=== PATIENT | female | born 1965 | race Caucasian/White ===

== ENCOUNTER → 2016-11-13 | Outpatient (CLI) | payer BC ==
--- NOTE | 2016-11-13 10:27 | DIAGNOSTIC IMAGING REPORT ---
RIGHT FOOT MIN 3 VIEWS CLINICAL HISTORY: Right foot pain following crush injury. COMPARISON: None FINDINGS: There is a possible nondisplaced fracture within the base of the proximal phalanx of the right fourth toe. Tarsometatarsal joints appear intact. No additional fractures are present. Lateral view demonstrates soft tissue swelling overlying the dorsal aspect of the metatarsophalangeal joints. IMPRESSION: 1. Suspected acute nondisplaced fracture of the base of the proximal phalanx of the right fourth toe. Electronically signed by: Antony Nelson M.D. 11/13/2016 10:26 AM Dictated Date/Time: 11/13/2016 10:21 AM
== END | disposition home or self-care (01) ==
LOC: C.RDSM 09:00
PROVIDERS: ATTEND Family Medicine
DX: M79.671 Pain in right foot (principal)

== ENCOUNTER → 2016-11-29 | Outpatient (CLI) | payer BC ==
--- NOTE | 2016-11-29 15:06 | DIAGNOSTIC IMAGING REPORT ---
RIGHT FOURTH TOE 3 VIEWS CLINICAL HISTORY: Fourth toe fracture. FINDINGS: 3 views of the right fourth toe are correlated with radiograph of the right foot dated 11/13/2016. There is unchanged alignment of a healing fracture through the base of the fourth proximal phalanx with overlying soft tissue edema. There is intra-articular extension. No additional fracture is seen. IMPRESSION: Unchanged alignment of healing fracture through the base of the fourth proximal phalanx as compared to 11/13/2016. Electronically signed by: Sergey Berkowitz M.D. 11/29/2016 3:04 PM Dictated Date/Time: 11/29/2016 3:03 PM
== END | disposition home or self-care (01) ==
LOC: C.RDSM 08:00
PROVIDERS: ATTEND Family Medicine
DX: Z87.81 Personal history of (healed) traumatic fracture (principal)

== ENCOUNTER 2024-09-09 20:36 | Observation (INO) ==
[2024-09-09] MEDS: ONDANSETRON INJ 2 MG/ML 2 ML VIAL IV STA (22:07)
[2024-09-09] MEDS: MoRPHine SULFATE 4 MG/ML 1 ML CARP\\VIAL IV PRN (22:07)
[2024-09-09 22:11] LABS: Basophils # (auto) 0.08 K/uL (0.00-0.20); Basophils % (auto) 0.8 %; Eosinophils # (auto) 0.08 K/uL (0.00-0.50); Eosinophils % (auto) 0.8 %; Hematocrit (blood only) 44.4 % (37.0-47.0); Hemoglobin 14.1 g/dl (12.0-16.0); Immature Granulocytes # (auto) 0.04 K/uL (0.01-0.20); Immature Granulocytes % (auto) 0.4 %; Lymphocytes # (auto) 1.78 K/uL (1.20-3.40); Lymphocytes % (auto) 18.7 %; Mean Corpuscular Hemoglobin 26.9 pg (25.0-34.0); Mean Corpuscular Hgb Conc 31.8 g/dL (32.0-36.0); Mean Corpuscular Volume 84.6 fL (80.0-100.0); Mean Platelet Volume 10.7 fL (9.4-12.4); Monocytes % (auto) 7.3 %; Neutrophils # (auto) 6.86 K/uL (1.40-6.50); Platelet Count 311 K/uL (130-400); RDW Coefficient of Variation 17.3 % (11.5-14.5); RDW Standard Deviation 53.1 fL (36.4-46.3); Red Blood Count 5.25 M/uL (4.20-5.40); White Blood Count 9.54 K/ul (4.8-10.8)
--- NOTE | 2024-09-09 22:23 | History & Physical Report ---
Date of Service September 09, 2024 Assessment & Plan (1) Ankle fracture, right: Plan: Traumatic fracture right ankle seen on XR. Ortho consulted in the ED. Patient would prefer - [facility]. Placed referral for [facility]. Offered [facility] - patient declined. Pain control - morphine 2 mg, 4 mg IV Antiemetics on board - Zofran ortho consult - likely surgery tomorrow NPO @ midnight coags ordered for the AM (2) GERD (gastroesophageal reflux disease): Plan: Switch to IV protonix while inpatient. (3) Mood disorder: Plan: Continue paroxetine. Plan Code status: full DVT ppx: none for now, would defer to ortho team on post-op chemoppx FENGI: NPO @ midnight, mIVF @ 80 mL/hr while NPO Dispo: MedSurg History of Present Illness Chief Complaint: fall Primary Care Provider: VESNA Cruz 59 y/o here for evaluation after a fall. Patient slipped on the steps and fell. Having right ankle pain. No nausea or vomiting. No CP or SOB. No change in bowel or bladder habits. Otherwise feeling fine. Patient is from [place] and is uncomfortable undergoing surgery with a provider that she does not have recommendations for. Would like to go with Aaron Doty or Shana. No history of DOMINIK, asthma, or prior adverse reaction to anesthesia. Allergies Allergy/AdvReac Type Severity Reaction Status Date / Time No Known Allergies Allergy Unverified 09/09/24 21:53 Home Medications Medication Instructions Recorded Confirmed Type pantoprazole 40 mg tablet,delayed 40 mg PO DAILYBB 09/09/24 09/09/24 History release paroxetine HCl 20 mg tablet 20 mg PO DAILY 09/09/24 09/09/24 History Past Med/Surg History Problem List Fall (Acute) Mood disorder GERD (gastroesophageal reflux disease) Ankle fracture, right (Acute) Surgical History History of section Social History Smoking Status: Never smoker Second Hand Exposure: No; Do You Dip or Chew Tobacco: No; Tobacco Cessation Education Requested by Patient: No Hx Alcohol Use: No Hx Substance Use: No Preferred Language: Swiss Communication Ability: Effective Steel Burner Required: No Beliefs That Will Affect Care: None Current Living Situation: Spouse Other Information That Helps Us Care for You: No Feels Safe at Home: Yes Safety Concerns: Feels Safe At This Time Review of Systems 2 Review of Systems: See HPI Physical Exam 2 Physical Exam: Gen: well appearing patient in NAD HEENT: AT NC MMM Resp: CTAB no wheezing no increased work of breathing CV: RRR no m/r/g clinically well perfused Abd: +BS, soft, non-tender, non-distended MSK: significant swelling right ankle, warm and well perfused Skin: no rashes or bruising Neuro: alert and oriented Psych: appropriate mood and affect Results & Data Results & Data Vital Signs (Past 12 Hours) Vital Signs Temp Pulse Pulse Resp BP BP Pulse Ox 09/09/24 20:52 36.9 C 90 18 101/84 97 09/09/24 20:46 36.9 C 90 18 101/84 97 O2 Del Method 09/09/24 20:52 Room Air 09/09/24 20:46 Room Air Laboratory Results 09/09/24 21:55 09/09/24 21:55 Diagnostic Findings Ankle X-Ray 09/09/24 20:41 Exam(s): XR RIGHT ANKLE, 3+ views EXAM: XR Right Ankle Complete, 3 or More Views CLINICAL HISTORY: Reason for exam: fall. TECHNIQUE: Frontal, lateral and oblique views of the right ankle. COMPARISON: No relevant prior studies available. FINDINGS: Bones/joints: Trimalleolar fracture. Posterior and lateral subluxation of the talar dome with respect to the tibial plafond. Soft tissues: Extensive soft tissue edema and deformity at the ankle. IMPRESSION: 1. Trimalleolar fracture. 2. Posterior and lateral subluxation of the talar dome with respect to the tibial plafond. Electronically signed by: Garth Knight MD 09/10/24 00:16 AM Supervising Physician Co-Signing Physician Notes Patient seen and examined, chart reviewed, case discussed with Dr. Gomez and I agree with the assessment and plan as above. In brief, patient is a 59yo female presenting s/p fall resulting in right trimalleolar fracture. Patient presently resides in [facility]. She works for [employer] and was in town for a conference. She unfortunately slipped on some stairs and fell resulting in a right trimalleolar ankle fracture. No head trauma or LOC. No additional injuries sustained. Fracture was splinted in the ER. Pain presently well controlled On exam she is afebrile, mildly hypertensive otherwise stable VS Skin - intact, no rashes or lesions HEENT- MMM, Neck supple Heart - +S1/S2, regular, no m/r/g Lungs- CTA Abd - soft, NT/ND Ext - right ankle with splint in place. NV intact Labs and images reviewed Assessment/Plan 59yo female presenting after a fall resulting in right trimalleolar fracture. She has been placed in a splint in the ER. NV intact. Pain well controlled at present. -Admit to medical -Keep NPO for possible OR in AM -Appreciate Orthopedic Surgery assistance -Pain control with Morphine PRN -Zofran PRN nausea -Protonix 40mg IV daily - patient with h/o GERD -Continue Paroxetine 20mg po daily - patient with h/o mood disorder Patient with no active cardiac or pulmonary conditions. She has had wisdom teeth extraction and in the past with no adverse reactions. Per RCRI criteria she is Class I Risk for MACE (0 points) and may proceed to surgery with no additional testing. Remainder of plan as above Resident Activity Tracking Resident Involvement: Resident Care Provided Care Provided: Adult [facility]
[2024-09-09 22:24] LABS: Albumin Globulin Ratio 1.8 (0.9-2); Albumin Level 4.3 gm/dl (3.4-5.0); BUN Creatinine Ratio 19.4 (10-20); Bilirubin,Total 0.6 mg/dl (0.2-1.0); Creatinine Clr Calc Pharmacy 93.5 ml/min; Globulin 2.4 gm/dl (2.5-4.0); Total Protein 6.7 gm/dl (6.0-8.3)
--- NOTE | 2024-09-10 00:17 | Emergency Department Note ---
History of Present Illness General Chief complaint: Ankle Pain Stated complaint: Fall, R Ankle Pain Time Seen by Provider: 09/09/24 20:37 History of Present Illness Maximum Pain Intensity: 9 This is a 59-year-old female presenting to the emergency department via EMS for evaluation of right ankle injury. Patient is from [facility] and is in [place] for a conference. The patient was walking down stairs, slipped awkwardly down 2 steps, and injured herself. She did not strike her head or lose consciousness. She has not been able to ambulate on her ankle since the injury. Her discomfort is rated a 9/10. Home Medications Medication Instructions Recorded Confirmed Type pantoprazole 40 mg tablet,delayed 40 mg PO DAILYBB 09/09/24 09/09/24 History release paroxetine HCl 20 mg tablet 20 mg PO DAILY 09/09/24 09/09/24 History Allergies Allergy/AdvReac Type Severity Reaction Status Date / Time No Known Allergies Allergy Unverified 09/09/24 21:53 Past Med/Surg History Problem List (Updated 09/10/24 @ 00:17 by Jeffrey Cuadra PA-C) Fall (Acute) Mood disorder GERD (gastroesophageal reflux disease) Ankle fracture, right (Acute) Surgical History (Updated 09/10/24 @ 00:11 by Jeffrey Cuadra PA-C) History of section Social History Smoking Status: Never smoker Feels Safe at Home: Yes Review of Systems A total of 10 systems reviewed and were otherwise negative Physical Exam Vital Signs Vital Signs - 24 hr 09/09/24 20:46 09/09/24 20:52 09/09/24 22:30 Temperature 36.9 C 36.9 C Temperature Source Oral Oral Pulse Rate 90 Pulse Rate [Finger] 90 92 H Respiratory Rate 18 18 17 Respiratory Effort / Characteristics Non-Labored Spontaneous Non-Labored Spontaneous Non-Labored Spontaneous Respiratory Depth Normal Normal Normal Respiratory Pattern Regular Blood Pressure 101/84 Blood Pressure [Left Arm] 101/84 144/89 H Blood Pressure Mean 89 Blood Pressure Mean [Left Arm] 89 107 Blood Pressure Position Sitting Blood Pressure Position [Left Arm] Sitting Pulse Oximetry 97 97 95 Oxygen Delivery Method Room Air Room Air Room Air Sepsis Recent Fever Within 48 Hours No Sepsis New/Unexplained Change in Mental Status No Sepsis Action Taken by Nursing No Action Required VITALS: Vitals are noted on the nurse's note and reviewed by myself. Vital signs stable. GENERAL: Well-developed, well-nourished, white female, who is mildly uncomfortable appearing but overall pleasant. HEAD: Normocephalic atraumatic. HEART: Regular rate and rhythm without murmurs gallops or rubs. LUNGS: Clear to auscultation bilaterally without wheezes, rales or rhonchi. No retractions or accessory muscle use. MUSCULOSKELETAL: Notable ecchymosis diffusely around the right ankle. There does appear to be deformity. Neurovascular status is intact throughout the right lower extremity including foot. No tenderness to the foot itself or the knee. No blood identified. NEURO: Patient was alert and oriented to person place and time. CN II through XII grossly intact. Course Administered Medications Morphine Sulfate (Morphine Sulfate 4 Mg/Ml 1 Ml Carp\Vial) 4 mg IV Q30M PRN PRN Reason: Pain Stop: 09/23/24 21:57 Last Admin: 09/09/24 22:07 Dose: 4 mg Documented By: BAO Discontinued Medications Ondansetron HCl (Ondansetron Inj 2 Mg/Ml 2 Ml Vial) 4 mg IV NOW STA Stop: 09/09/24 21:59 Last Admin: 09/09/24 22:07 Dose: 4 mg Documented By: BAO Medical Decision Making Differential Diagnosis Differential diagnosis includes, but is not limited to: Sprain, strain, fracture, dislocation, subluxation, contusion, and others Laboratory Data 09/09/24 21:55 09/09/24 21:55 Lab Results 09/09/24 Range/Units 21:55 WBC 9.54 (4.8-10.8) K/ul RBC 5.25 (4.20-5.40) M/uL Hgb 14.1 (12.0-16.0) g/dl Hct 44.4 (37.0-47.0) % MCV 84.6 (80.0-100.0) fL MCH 26.9 (25.0-34.0) pg MCHC 31.8 L (32.0-36.0) g/dL RDW Std Deviation 53.1 H (36.4-46.3) fL RDW Coeff of Geetha 17.3 H (11.5-14.5) % Plt Count 311 (130-400) K/uL MPV 10.7 (9.4-12.4) fL Immature Gran % (Auto) 0.4 % Neut % (Auto) 72.0 % Lymph % (Auto) 18.7 % Finney % (Auto) 7.3 % Eos % (Auto) 0.8 % Baso % (Auto) 0.8 % Neut # (Auto) 6.86 H (1.40-6.50) K/uL Lymph # (Auto) 1.78 (1.20-3.40) K/uL Finney # (Auto) 0.70 H (0.11-0.59) K/uL Eos # (Auto) 0.08 (0.00-0.50) K/uL Baso # (Auto) 0.08 (0.00-0.20) K/uL Immature Gran # (Auto) 0.04 (0.01-0.20) K/uL Sodium 138 (136-145) mmol/L Potassium 4.0 (3.5-5.1) mmol/L Chloride 103 (98-107) mmol/L Carbon Dioxide 29 (21-32) mmol/L Anion Gap 6 (3-11) BUN 14 (6-23) mg/dl Creatinine 0.72 (0.6-1.2) mg/dl Est Cr Clr Drug Dosing 93.5 ml/min eGFR 96.26 BUN/Creatinine Ratio 19.4 (10-20) Glucose 104 H (70-99(Fasting)) mg/dl Calcium 10.0 (8.6-10.3) mg/dl Total Bilirubin 0.6 (0.2-1.0) mg/dl AST 22 (13-39) U/L ALT 25 (7-52) U/L Alkaline Phosphatase 99 (34-104) U/L Total Protein 6.7 (6.0-8.3) gm/dl Albumin 4.3 (3.4-5.0) gm/dl Globulin 2.4 L (2.5-4.0) gm/dl Albumin/Globulin Ratio 1.8 (0.9-2) MDM Narrative Physical exam and history were performed. Nursing notes, EMR, and Medication List were personally reviewed. No social concerns were identified as barriers to patients care. Patient appears to have injured her right ankle after slipping down 2 steps. Patient is quite swollen and tender around the right ankle. X-ray was obtained and reviewed showing a right ankle fracture. This is at least a bimalleolar fracture, and possibly trimalleolar. She also has a mild subluxation at the ankle itself. Case was discussed with the on-call orthopedist, Dr. Ordonez. Overall patient does not appear well for discharge, as she will need surgical repair of this injury. Blood work was obtained and IV access was established. Patient was given IV morphine and IV Zofran. Patient was placed in a splint at bedside and neurovascular status remained intact after placement. I did attempt to improve the anatomic location of her mild subluxation during splinting, and she seems to tolerate this well. Patient was made NPO. Case was discussed with the on-call hospitalist team who agreed to evaluate the patient here in the ER. They will assist with organizing orthopedic evaluation. Please see the hospitalist dictation for further patient course, plan, and disposition. The chart was completed utilizing [employer] Speech Voice Recognition Software. Grammatical errors, random word insertions, pronoun errors, and incomplete sentences are an occasional consequence of this system due to software limitations, ambient noise, and hardware issues. Any formal questions or concerns about the content, text, or information contained within the body of this dictation should be directly addressed to the provider for clarification. Impression & Plan Ankle fracture, right, Fall Discharge Plan Visit Data Chief Complaint: Ankle Pain Stated Complaint: Fall, R Ankle Pain ED Provider: Richard Lorenzo ED Midlevel Provider: Jeffrey Cuadra Discharge Problem: Ankle fracture, right, Fall Forms Stand Alone Forms: [facility] [employer] Prescriptions Prescriptions: No Action paroxetine HCl 20 mg tablet 20 mg PO DAILY pantoprazole 40 mg tablet,delayed release (DR/EC) 40 mg PO DAILYBB Referrals Referrals: VESNA Cruz [Other]
--- NOTE | 2024-09-10 00:17 | XRay Report ---
Exam(s): XR RIGHT ANKLE, 3+ views EXAM: XR Right Ankle Complete, 3 or More Views CLINICAL HISTORY: Reason for exam: fall. TECHNIQUE: Frontal, lateral and oblique views of the right ankle. COMPARISON: No relevant prior studies available. FINDINGS: Bones/joints: Trimalleolar fracture. Posterior and lateral subluxation of the talar dome with respect to the tibial plafond. Soft tissues: Extensive soft tissue edema and deformity at the ankle. IMPRESSION: 1. Trimalleolar fracture. 2. Posterior and lateral subluxation of the talar dome with respect to the tibial plafond. Electronically signed by: Garth Knight MD 09/10/24 00:16 AM
[2024-09-10] MEDS ORDERED: MoRPHine SULFATE 2 MG/ML CARP IV PRN (01:23)
[2024-09-10] MEDS ORDERED: MELATONIN 3 MG TAB PO PRN (01:23)
[2024-09-10] MEDS ORDERED: POLYETHYLENE (MIRALAX) 17 GM PACK PO PRN (01:23)
[2024-09-10] MEDS ORDERED: MoRPHine SULFATE 4 MG/ML 1 ML CARP\\VIAL IV PRN (01:23)
[2024-09-10] MEDS ORDERED: ONDANSETRON INJ 2 MG/ML 2 ML VIAL IV PRN ×3 (01:23→17:40)
[2024-09-10] MEDS: LACTATED RINGER'S 1,000 ML IV STA (01:56)
[2024-09-10] MEDS: PARoxetine HCL 20 MG TAB PO SCH (08:04)
[2024-09-10] MEDS: PANTOprazole 40 MG/10 ML SYR IV SCH (08:05)
--- NOTE | 2024-09-10 08:50 | Orthopedic Consultation ---
Date of Service September 10, 2024 Assessment & Plan (1) Ankle fracture, right: She is npo. OR today for ORIF of her right ankle fracture. Continue NWB RLE. Continue to elevate RLE. History of Present Illness Reason for Consultation: . Requesting Physician: . Attending Physician: Jarrett Chavira MD .59 year old patient who lives in [facility], here for a conference, slipped on some wet stairs last night and injured her ankle. She was seen in the ER last night, found to have a fracture/dislocation of her ankle, splinted, and admitted to the Hospitalist service. She also has some soreness around her tailbone but feels it is okay. No other injuries. Allergies Allergy/AdvReac Type Severity Reaction Status Date / Time No Known Allergies Allergy Unverified 09/09/24 21:53 Home Medications Medication Instructions Recorded Confirmed Type pantoprazole 40 mg tablet,delayed 40 mg PO DAILYBB 09/09/24 09/09/24 History release paroxetine HCl 20 mg tablet 20 mg PO DAILY 09/09/24 09/09/24 History Past Med/Surg History Problem List Fall (Acute) Mood disorder GERD (gastroesophageal reflux disease) Ankle fracture, right (Acute) Surgical History History of section Social History Smoking Status: Never smoker Second Hand Exposure: No; Do You Dip or Chew Tobacco: No; Tobacco Cessation Education Requested by Patient: No Hx Alcohol Use: No Hx Substance Use: No Preferred Language: Guatemalan Communication Ability: Effective Freight Associate Required: No Beliefs That Will Affect Care: None Current Living Situation: Spouse Other Information That Helps Us Care for You: No Feels Safe at Home: Yes Safety Concerns: Feels Safe At This Time Review of Systems All systems reviewed & are unremarkable except as noted in HPI & below. Physical Exam .alert and oriented. NAD Right leg: splint intact on ankle. Able to move toes appropriately. NVI Results & Data Results & Data Laboratory Results . Diagnostic Findings . xrays of her ankle show a trimalleolar fracture/dislocation. PG Care Time/CCT Total # of Minutes Spent Total Time Spent with Patient: Total time spent is greater than 50% in coordination of care (as documented) at patient's floor/unit and/or counseling patient: Coding Level of Care Code 01630 IN/OBS CONSULT LVL 4,60M (57 - DECISION FOR SURGERY) Diagnoses Ankle fracture, right S82.899O
[2024-09-10 08:57] LABS: Hematocrit (blood only) 40.9 % (37.0-47.0); Hemoglobin 12.9 g/dl (12.0-16.0); Mean Corpuscular Hemoglobin 26.9 pg (25.0-34.0); Mean Corpuscular Hgb Conc 31.5 g/dL (32.0-36.0); Mean Corpuscular Volume 85.2 fL (80.0-100.0); Mean Platelet Volume 10.4 fL (9.4-12.4); Platelet Count 277 K/uL (130-400); RDW Coefficient of Variation 17.3 % (11.5-14.5); RDW Standard Deviation 53.8 fL (36.4-46.3); White Blood Count 6.19 K/ul (4.8-10.8)
[2024-09-10 09:09] LABS: Albumin Level 3.8 gm/dl (3.4-5.0); BUN Creatinine Ratio 19.1 (10-20); Bilirubin,Total 0.9 mg/dl (0.2-1.0); Calcium 9.3 mg/dl (8.6-10.3); Creatinine Clr Calc Pharmacy 96.8 ml/min; Globulin 1.9 gm/dl (2.5-4.0); Potassium 4.1 mmol/L (3.5-5.1); Total Protein 5.7 gm/dl (6.0-8.3)
[2024-09-10 09:13] LABS: Partial Thromboplastin Time 26 Seconds (21-31); Prothrombin Time 10.9 Seconds (9.0-12.0)
--- NOTE | 2024-09-10 09:21 | XRay Report ---
XR chest 1V portable HISTORY: 59 years-old Female pre-op preoperative exam COMPARISON: None TECHNIQUE: AP view the chest FINDINGS: Cardiac silhouette is normal. No pneumothorax, pleural effusion or airspace consolidation. The bones of the chest appear grossly intact. IMPRESSION: No acute process. ACT 112: Negative or not required by law. The above report was generated using voice recognition software. It may contain grammatical, syntax o r spelling errors. Electronically signed by: Loy Stahl M.D. 09/10/2024 9:19 AM
--- NOTE | 2024-09-10 10:56 | Hospitalist Progress Note ---
Date of Service September 10, 2024 Assessment & Plan (1) Ankle fracture, right: Plan: From mechanical fall. Orthopedic consultation appreciated. Open reduction internal fixation later today, September 10. (2) GERD (gastroesophageal reflux disease): Plan: Stable. PPI therapy if needed (3) Mood disorder: Plan: Stable. Continue paroxetine. Plan Eventual discharge back to home when cleared by orthopedics. Admission and Anticipated Discharge Date Admission Date: September 09, 2024 Subjective Alert and oriented. No distress. Right ankle is immobilized and elevated. Orthopedic consultation noted. She will have open reduction internal fixation of the fracture today, September 10. Pain is well-controlled at this time. Review of Systems 2 Review of Systems: Constitutionalno fever or chills ENTno blurred vision, no double vision, no epistaxis, no sore throat Respiratoryno cough, no wheezing, no shortness of breath Cardiacno palpitations, no chest pain, no syncope Janet nausea, vomiting, diarrhea, melena, hematochezia GUno urinary retention, no urinary incontinence, no dysuria, no hematuria Musculoskeletalright ankle fracture is immobilized and right lower extremity is elevated Skinno bruising, no rashes, no pruritus Neurono isolated weakness, no paresthesia Psychno depression, no anxiety Physical Exam 2 Physical Exam: General-alert and oriented x3, no fever, no chills HEENT-head atraumatic and normocephalic, pupils equal and reactive to light, extraocular muscles intact Neck-no lymphadenopathy or thyromegaly, trachea midline Chest-clear to auscultation. No rales, wheezing or rhonchi Cardiac-regular rate and rhythm, normal S1 and S2 Abdomen-normal bowel sounds, no hepatosplenomegaly Extremities-right ankle is immobilized and right lower extremity is elevated. Neuro-cranial nerves II through XII intact, motor and sensory function within normal limits, strength symmetrical, no focal deficits Psych-normal affect, normal mood Results & Data Results & Data Vital Signs (Past 12 Hours) Vital Signs Temp Pulse Pulse Resp BP BP Pulse Ox 09/10/24 07:13 36.7 C 91 H 18 139/78 94 09/10/24 01:00 36.3 C L 89 09/10/24 00:46 80 17 145/80 H 96 09/10/24 00:00 80 17 145/80 H 96 O2 Del Method 11/15/24 07:13 Room Air 09/10/24 01:00 Room Air 09/10/24 00:46 Room Air 09/10/24 00:00 Room Air Laboratory Results 09/10/24 08:15 09/10/24 08:15 PG Care Time/CCT Total # of Minutes Spent Total Time Spent with Patient: Total time spent is greater than 50% in coordination of care (as documented) at patient's floor/unit and/or counseling patient: Coding Level of Care Code 66443 SUB INP/OBS CARE 2/35MIN Diagnoses Ankle fracture, right S82.891A GERD (gastroesophageal reflux disease) K21.9 Mood disorder F39
--- NOTE | 2024-09-10 12:45 | History & Physical Bridge Note ---
Date of Service September 10, 2024 History & Physical Bridge Note I have examined the patient, reviewed the History & Physical and in the interval since the performance of the History & Physical I have noted the following changes of clinical significance: no changes noted
[2024-09-10] MEDS ORDERED: MIDAZOLAM HCL 1 MG/ML 2ML VIAL ONE (13:15)
[2024-09-10] MEDS ORDERED: ONDANSETRON INJ 2 MG/ML 2 ML VIAL ONE (13:15)
[2024-09-10] MEDS ORDERED: ROCURONIUM BROMIDE 10 MG/ML 5 ML VIAL IV ONE (13:15)
[2024-09-10] MEDS ORDERED: PROPOFOL IV EMULSION 10 MG/ML 20 ML VIAL IV ONE ×2 (13:15→16:16)
[2024-09-10] MEDS ORDERED: fentaNYL citrate PF 100 MCG/2 ML VIAL ONE (13:15)
[2024-09-10] MEDS ORDERED: fentaNYL citrate PF 100 MCG/2 ML VIAL IV PRN (13:25)
[2024-09-10] MEDS ORDERED: PROMETHAZINE HCL 6.25 MG in SODIUM CHLORIDE 0.9% 50 ML IV PRN (13:25)
[2024-09-10] MEDS ORDERED: ePHEDrine sulfate 50 MG/ML AMP IV PRN (13:25)
[2024-09-10] MEDS ORDERED: ATROPINE SULFATE 0.1 MG/ML 10ML SYR IV PRN (13:25)
[2024-09-10] MEDS ORDERED: HYDROmorphone INJ 1 MG/ML SYRINGE IV PRN (13:25)
[2024-09-10] MEDS ORDERED: ROPIVACAINE 0.5% 5 MG/ML 30 ML VIAL ONE (13:28)
--- NOTE | 2024-09-10 13:29 | Anesthesiology Consultation ---
Date of Service September 10, 2024 Assessment & Plan Chart Review Chart Review: Acceptable Risk for Surgery Consults Requested none ASA ASA2 Proposed Anesthesia Anesthesia Type: General Regional Risk / Benefits Reviewed With: PT / POA / Parent / Guardian, Accepts Plan and Informed Consent Obtained History Surgery Operation Date: 09/10/24 08:10 Proposed Procedures p Rigth Ankle Open Reduction Internal Fixation - Jeffrey Juarez MD Height/Weight Height: 5 ft 4 in Weight: 90 kg Allergies Allergy/AdvReac Type Severity Reaction Status Date / Time No Known Allergies Allergy Unverified 09/09/24 21:53 Medications Home Medications Medication Instructions Recorded Confirmed Last Taken pantoprazole 40 mg tablet,delayed 40 mg PO DAILYBB 09/09/24 09/09/24 Unknown release paroxetine HCl 20 mg tablet 20 mg PO DAILY 09/09/24 09/09/24 Unknown Active Medications Generic Name Dose Route Start Last Admin Trade Name Freq PRN Reason Stop Dose Admin Paroxetine HCl 20 mg 09/10/24 09:00 09/10/24 08:04 Paroxetine Hcl 20 Mg Tab PO 10/10/24 08:59 20 mg DAILY KRISTAL Administration NPO Date Last Intake of Fluids: 09/09/24 Time Last Intake of Fluids: 23:00 Last Intake of Fluids Comment: 0745 sip water for meds Date Last Intake of Solids: 09/09/24 Time Last Intake of Solids: 23:00 Exercise / Class Metabolic Activity II 4-5 Yardwork/Stairs/Walk up hill Past Surgical History Surgical History History of section Past Anesthesia History No Hx of Anesthesia Complications History of PONV No Hx of PONV Social History Smoking Status: Never smoker Do You Dip or Chew Tobacco: No Hx Alcohol Use: No Hx Substance Use: No Review of Systems ROS Unobtainable: All systems reviewed & are unremarkable except as noted in HPI & below Physical Exam Vital Signs Last Vital Signs Temp 37.2 C 09/10/24 12:50 Pulse 80 09/10/24 12:50 Resp 20 09/10/24 12:50 BP 136/84 09/10/24 12:50 Pulse Ox 93 09/10/24 12:50 O2 Del Method Room Air 09/10/24 12:50 ENMT Thyromental Distance: > or= 3.5 Finger Breadths Mallampati Class: II Respiratory normal respiratory effort Auscultation: lungs clear to auscultation bilaterally Cardiovascular Rate/Rhythm: regular rate and regular rhythm Neurologic moves all extremities Psychiatric Orientation: alert and oriented x 3 Testing Laboratory Results 09/10/24 08:15 09/10/24 08:15 PT 10.9 Seconds (9.0-12.0) 09/10/24 08:15 INR 1.0 (0.9-1.1) 09/10/24 08:15 APTT 26 Seconds (21-31) 09/10/24 08:15
[2024-09-10] MEDS: LACTATED RINGER'S 1,000 ML IV SCH (13:47)
[2024-09-10] MEDS: ceFAZolin 2000MG 2,000 MG/15 ML SYR IV ONE (14:25)
[2024-09-10] MEDS: ceFAZolin 2,000 MG/15 ML IV PUSH IV ONE (15:14)
[2024-09-10] MEDS: BUPIVACAINE/EPINEPHRINE 0.5% MPF 1:200,000 30 ML VIAL ONE (15:55)
--- NOTE | 2024-09-10 16:30 | Operative Report ---
PG Post Operative Report Pre & Post Diagnosis Operation Date: 09/10/24 08:10 Pre-Op Diagnosis: Right trimalleolar ankle fracture/dislocation Post-Op Diagnosis: Right trimalleolar ankle fracture/dislocation I identified the patient and participated in the time-out.: Yes Procedure Operation Date: 09/10/24 08:10 Actual Procedures p Lion trimalleolar ankle fracture open Reduction Internal Fixation - Jeffrey Juarez MD Surgeon Jeffrey Juarez MD Family Law Legal Assistant Francis Looney PA-C Estimated Blood Loss 20 Findings Consistent with Post-Op Diagnosis Specimens None Anesthesia Type General Regional Complications none Disposition Accompanied Patient To Recovery: No Indications Patient is a 59-year-old female who sustained an injury to her ankle leg yesterday when she stained a fall. She had acute onset of pain and deformity. She was seen in the emergency room splinted admitted and medically optimized for surgical treatment. She got a trimalleolar ankle fracture dislocation. Description of Procedure Medial side implants consisted of: 1. Synthes 4.0 long threaded/partially-threaded cannulated screw x 2. 2. Synthes 4.0 cannulated screw washer. Lateral side implants consisted of: 1. Synthes 3.5 7 hole one third semitubular locking plate x 1. 2. 3.5 fully threaded cortical screws x 5. 3. 3.5 cortical locking screws x 2. The patient was taken the op room, identified, placed on the operative table in supine position. All contact areas were appropriately padded. IV antibiotics provided by anesthesia team. General anesthetic was implemented. A right thigh tourniquet was then placed. The right lower extremity splint was then removed. We then scrubbed the leg with Hibiclens and then prepped with ChloraPrep and draped the lower leg in a sterile fashion. The right leg was elevated and exsanguinated with use of an Esmarch and a tourniquet was placed at 300 mmHg. Attention was first drawn the medial side. A curvilinear incision was made directly over the incision site and extending distally. Sharp dissection Through subcutaneous tissue directly down the fracture site. The fracture was fairly large. We opened the fracture site out and cleaned it out of all soft tissues. I then reduced it and held with a reduction clamp. 2 wires were placed across the fracture site. This was verified fluoroscopically and then 2 partially-threaded/long threaded cannulated screws were placed over the guidewires 1 with a washer. At this point excellent fixation. Attention drawn laterally. Direct lateral approach to the fibula was then performed through a longitudinal incision. Sharp dissection was got through subcutaneous tissue down to Piper fibula. The fracture was identified. There was some slight comminution. I did open the fracture site up, cleaned it out of all clot. I then reduced and held with a reduction clamp. A single interfragmentary screw was placed from anterior to posterior across the fracture site. A 7 hole one third semitubular plate was then contoured to the lateral aspect of fibula. It was fixed proximally with a 4 cortical screws and distally with 2 locking screws. X-rays brought in. All hardware is in appropriate position. I then stressed the ankle and there was no gapping at all. Attention drawn to closing. Both wounds were irrigated extensively. I injected locally with 30 cc of half percent Marcaine with epinephrine. The fascia over the plate laterally was closed with 0 Vicryl suture in a [id number]-[id number] fashion. The tourniquet was then let down for tourniquet time 47 minutes. Hemostasis assured use electrocautery. Wounds once again irrigated. The subcutaneous tissues of both wounds were then closed with 2-0 Vicryl suture in buried interrupted fashion and the skin was closed with a combination of 3-0 and 2-0 nylon suture in a simple fashion. The leg was then cleaned and dried a sterile dressing with Xeroform, 4 fours, sterile cast padding and a well-padded posterior and stirrup splint were applied. The patient was then brought out of general esthesia and transferred to the recovery room in stable condition. The patient tolerated the procedure well and there were no complications. Francis Looney, my physician clinical medical assistant, was present for the entire procedure. His assistance was required for proper patient positioning, prepping and draping, surgical exposure, retraction, perform the technical details of the operation, placement of the hardware, closure of the incision site and placement of the sterile postoperative splint and sling. I attest to the content of the Intraoperative Record and any orders documented therein. Any exceptions are noted below.
--- NOTE | 2024-09-10 16:54 | Anesthesiology Progress Note ---
Date of Service September 10, 2024 Anesthesia Post Procedure Vital Signs Vital Signs: Temp Pulse Pulse Pulse Resp BP BP 09/10/24 16:50 98.1 F 76 16 154/93 H 09/10/24 16:40 78 18 144/85 H 09/10/24 16:30 80 14 129/71 09/10/24 16:18 98.2 F 78 16 125/80 09/10/24 12:50 99.0 F 80 20 09/10/24 07:13 98.1 F 91 H 18 139/78 09/10/24 07:10 09/10/24 01:00 97.3 F L 89 09/10/24 00:46 80 17 145/80 H 09/10/24 00:00 80 17 145/80 H 09/09/24 22:30 92 H 17 144/89 H 09/09/24 20:52 98.4 F 90 18 101/84 09/09/24 20:46 98.4 F 90 18 101/84 BP Pulse Ox O2 Del Method O2 Flow Rate 09/10/24 16:50 95 Nasal Cannula 2 09/10/24 16:40 94 Oxymask 3 09/10/24 16:30 96 Oxymask 3 09/10/24 16:18 100 Oxymask 6 09/10/24 12:50 136/84 93 Room Air 09/10/24 07:13 94 Room Air 09/10/24 07:10 Room Air 09/10/24 01:00 Room Air 09/10/24 00:46 96 Room Air 09/10/24 00:00 96 Room Air 09/09/24 22:30 95 Room Air 09/09/24 20:52 97 Room Air 09/09/24 20:46 97 Room Air Pain Intensity Right Ankle: Pain Intensity: 7 Transfer of Care Handoff Completed per policy Notes Mental Status: alert / awake / arousable and participated in evaluation Patient Amnestic to Procedure: Yes Nausea / Vomiting: adequately controlled Pain: adequately controlled Airway Patency, RR, SpO2: stable & adequate BP & HR: stable & adequate Hydration State: stable & adequate Anesthetic Complications: no major complications apparent and Pt Satisfied with anesthetic care
[2024-09-10] MEDS ORDERED: oxyCODONE HCL IR 5 MG TAB (IMMEDIATE RELEASE) PO PRN (17:40)
[2024-09-10] MEDS ORDERED: METOCLOPRAMIDE HCL INJ 5 MG/ML 2 ML VIAL IV PRN (17:40)
[2024-09-10] MEDS ORDERED: bisacodyL 10 MG SUPP PR PRN (17:40)
[2024-09-10] MEDS ORDERED: HYDROmorphone INJ 0.5 MG/0.5 ML SYR IV PRN (17:40)
[2024-09-10] MEDS ORDERED: ALUMINUM/MAGNESIUM SUSP 30 ML UDC PO PRN (17:40)
[2024-09-10] MEDS ORDERED: NALOXONE HCL 0.4 MG/1 ML VIAL/CARP IV PRN (17:40)
[2024-09-10] MEDS ORDERED: MAGNESIUM HYDROXIDE SUSP 30 ML UDC PO PRN (17:40)
[2024-09-10] MEDS ORDERED: diphenhydrAMINE Capsule 25 MG CAP PO PRN (17:40)
[2024-09-10] MEDS: ASCORBIC ACID 500 MG TAB PO SCH (20:21)
[2024-09-10] MEDS: KETOROLAC 30 MG/ML VIAL IV SCH (20:21)
[2024-09-10] MEDS: ASPIRIN 81 MG ECTAB PO SCH (20:22)
[2024-09-10] MEDS: DOCUSATE SODIUM 100 MG CAP PO SCH (20:23)
[2024-09-10] MEDS: SENNA 8.6 MG TAB PO SCH (20:24)
[2024-09-10] MEDS: ceFAZolin 2000MG 2,000 MG/15 ML SYR IV SCH (21:05)
[2024-09-10] MEDS: ACETAMINOPHEN 500 MG TAB PO SCH (21:05)
[2024-09-11] MEDS: PANTOprazole 40 MG TAB PO SCH (05:59)
[2024-09-11 06:45] LABS: Basophils # (auto) 0.02 K/uL (0.00-0.20); Basophils % (auto) 0.2 %; Hematocrit (blood only) 39.7 % (37.0-47.0); Hemoglobin 12.4 g/dl (12.0-16.0); Immature Granulocytes # (auto) 0.05 K/uL (0.01-0.20); Immature Granulocytes % (auto) 0.6 %; Lymphocytes # (auto) 0.96 K/uL (1.20-3.40); Lymphocytes % (auto) 11.4 %; Mean Corpuscular Hemoglobin 26.7 pg (25.0-34.0); Mean Corpuscular Hgb Conc 31.2 g/dL (32.0-36.0); Mean Corpuscular Volume 85.4 fL (80.0-100.0); Mean Platelet Volume 10.5 fL (9.4-12.4); Monocytes % (auto) 4.7 %; Neutrophils % (auto) 83.1 %; Platelet Count 280 K/uL (130-400); RDW Coefficient of Variation 17.2 % (11.5-14.5); RDW Standard Deviation 53.6 fL (36.4-46.3); Red Blood Count 4.65 M/uL (4.20-5.40); White Blood Count 8.43 K/ul (4.8-10.8)
[2024-09-11 07:05] LABS: BUN Creatinine Ratio 16.7 (10-20); Calcium 9.2 mg/dl (8.6-10.3); Creatinine Clr Calc Pharmacy 91.4 ml/min
[2024-09-11] MEDS: dexAMETHasone 10 MG in SYRINGE 0 ML IV SCH (07:28)
[2024-09-11] MEDS: MULTIVITAMIN TAB PO SCH (07:28)
--- NOTE | 2024-09-11 07:43 | Orthopedic Progress Note ---
Date of Service September 11, 2024 Assessment & Plan (1) Ankle fracture, right: Plan: 59-year-old female postop day 1 from ORIF of right trimalleolar ankle fracture dislocation. Orthopedically she is doing well. Pains controlled. Plan: 1. DVT prophylaxis including thigh-high teds, SCDs, baby aspirin twice a day for 6 weeks. 2. PT/OT. She is nonweightbearing right leg. Needs to keep her heel off the bed and heel precautions. 3. Pain control. Doing okay with current pain regimen. Really not have much in the way of pain. 4. Splint management. Will just can leave the splint on for 2 weeks. Keep it clean and dry. Elevate is much as possible. 5. Disposition. She is orthopedically okay for discharge. She will need to see a local orthopedist either here or myself or someone closer to home somewhere between 2 and 3 weeks out from surgery. Admission and Anticipated Discharge Date Admission Date: September 09, 2024 Subjective 59-year-old female postop day 1 from a ORIF of trimalar ankle fracture dislocation. She is doing pretty well. Really not much in the way of pain. No chest pain or shortness of breath. Not feeling dizzy or lightheaded. Physical Exam Physical Exam: Physical nation was a pleasant middle-age female. That she sitting up in bed this morning looks quite comfortable. Examination of the right leg reveals that he splint to be clean dry and in place. She can flex extend her toes appropriately. She got brisk refill. She is neurologically intact. Results & Data Vital Signs (Past 12 Hours) Vital Signs Temp Pulse Resp BP BP Pulse Ox O2 Del Method 09/11/24 00:20 36.5 C 90 16 133/77 91 Room Air 09/10/24 20:23 Room Air, Nasal Cannula 09/10/24 20:00 37.0 C 90 16 134/76 94 Room Air O2 Flow Rate 09/11/24 00:20 09/10/24 20:23 2 09/10/24 20:00
--- NOTE | 2024-09-11 08:24 | Fluoroscopy Report ---
FL ankle RT min 3V RTN CLINICAL HISTORY: RIGHT ANKLE FXacute right ankle fracture COMPARISON STUDY: None FLUOROSCOPY TIME: 11.1 seconds FLUOROSCOPY IMAGES: 4 EXPOSURE DOSE: 0.43 mGy FINDINGS: Cannulated screws within the medial malleolus. Lateral plate and screw fusion of the latera l malleolus. Expected postoperative soft tissue swelling with deep tissue air. IMPRESSION: Fluoroscopic assistance as above. ACT 112: Negative or not required by law. Electronically signed by: Loy Stahl M.D. 09/11/2024 8:22 AM
[2024-09-11 09:23] VITALS: PULSE 99; RESP 18; TEMP 97.9; O2SAT 93
--- NOTE | 2024-09-11 10:49 | Discharge Summary ---
Discharge Summary Date of Service September 11, 2024 Principal Dx & Hospital Course #1 = Principal Diagnosis (1) Ankle fracture, right: From mechanical fall. Orthopedic consultation appreciated. Open reduction internal fixation later done uneventfully on September 10. Postoperative day 1. Orthopedic entry noted. She is medically stable for discharge today, September 11 (2) GERD (gastroesophageal reflux disease): Stable. PPI therapy (3) Mood disorder: Stable. Continue paroxetine. Plan Home today, September 11. Admission HPI Per Admitting Provider 59 y/o here for evaluation after a fall. Patient slipped on the steps and fell. Having right ankle pain. No nausea or vomiting. No CP or SOB. No change in bowel or bladder habits. Otherwise feeling fine. Patient is from [place] and is uncomfortable undergoing surgery with a provider that she does not have recommendations for. Would like to go with Aaron Doty, or Shana. No history of DOMINIK, asthma, or prior adverse reaction to anesthesia. Discharge Exam General-alert and oriented x3, no fever, no chills HEENT-head atraumatic and normocephalic, pupils equal and reactive to light, extraocular muscles intact Neck-no lymphadenopathy or thyromegaly, trachea midline Chest-clear to auscultation. No rales, wheezing or rhonchi Cardiac-regular rate and rhythm, normal S1 and S2 Abdomen-normal bowel sounds, no hepatosplenomegaly Extremities-right ankle is immobilized and right lower extremity is elevated. Neuro-cranial nerves II through XII intact, motor and sensory function within normal limits, strength symmetrical, no focal deficits Psych-normal affect, normal mood Discharge Plan Discharge Items Patient Disposition: Home - Self-Care Reason For Visit: FALL Discharge Diagnosis: Right Ankle Fracture/Dislocation Activity: Per Instructions section Activity Comment: Nonweightbearing right leg Weightbearing: Right non-weightbearing Non-emergency contact: Primary Care Provider and Surgeon Call non-emergency contact if: you have any medication questions and your symptoms worsen Follow-up/Referrals: Jeffrey Juarez MD [Physician] - (Orthopedic follow-up 2-3 weeks from surgery date.) Nunu Cruz MD [Primary Care Provider] - Diet: Regular Addtl Attending Provider Instructions: Keep splint and dressing clean, dry, and intact. Keep all pressure off heel. Elevate foot as much as possible. Pending Studies at Discharge: No Stand-Alone Forms: My [facility], Smoking Cessation Medications and DC Order Prescriptions: New oxycodone 5 mg Tablet 5 mg PO Q6H PRN (Reason: pain) Qty: 10 0RF aspirin 81 mg Tablet,Delayed Release (Dr/Ec) 81 mg PO BID Qty: 0 0RF multivitamin with folic acid [Daily-Roxanne (with folic acid)] 400 mcg Tablet 1 tab PO QAM Qty: 0 0RF ascorbic acid (vitamin C) [Vitamin C] 500 mg Tablet 500 mg PO BIDM Qty: 0 0RF Continued paroxetine HCl 20 mg tablet 20 mg PO DAILY pantoprazole 40 mg tablet,delayed release (DR/EC) 40 mg PO DAILYBB Discharge Orders: Discharge Order (Routine); Ordered 09/11/24 Ordered By: Jarrett Chavira Admission Data Admit Date/Time: 09/09/24 22:53 Attending Provider: Jarrett Chavira Admit Provider: Coleen Gomez Primary Care Provider: Nunu Cruz Other Providers: Mamta Juarez; Jeffrey Juarez Hospital Stay Data Consultations 09/09/24 21:57 Consult Orthopedic Surgery Stat ED Decision to Admit Stat 09/09/24 22:53 Consult Orthopedic Surgery Routine Procedures Performed Operation Date: 09/10/24 08:10 Actual Procedures p Rigth Ankle Open Reduction Internal Fixation - Jeffrey Juarez MD Diagnostic Imagining Performed 09/10/24 FL ankle RT min 3V RTN Routine 09/10/24 13:39 US guide needle placement Routine Pending Results Patient Have Any Pending Studies at Discharge: No Discharge Instructions Given to Patient (Per Discharging Provider) Keep splint and dressing clean, dry, and intact. Keep all pressure off heel. Elevate foot as much as possible. Total Time Total Time Spent Total Time Spent (In Minutes): 45 minutes Coding Level of Care Code 34751 INP/OBS DISCH >30 MIN Diagnoses Ankle fracture, right S82.891A GERD (gastroesophageal reflux disease) K21.9 Mood disorder F39
[2024-09-11 11:26] VITALS: BP 133/77
--- NOTE | 2024-09-21 09:10 | Billing Data ---
Date of Service September 09, 2024 Coding Level of Care Code 34523 INT INP/OBS CARE
== END 2024-09-11 13:49 | disposition home or self-care (01) | DRG 494 ==
LOC: ED 20:36 → 3N 22:53 → INTOOBSV 22:53 → SUATTDRO 22:53 → 3N 09-10 00:46